=== PATIENT | male | born 1950 | race Caucasian/White ===

== ENCOUNTER 2018-07-06 16:09 | Emergency (ER) | payer OTHER ==
--- NOTE | 2018-07-06 16:24 | ER Report ---
History and Physical Time Seen By MD: 16:23 (JOSHUA MORGAN DO) HPI/ROS CHIEF COMPLAINT: Bilateral erythematous rash of the lower extremities HISTORY OF PRESENT ILLNESS: Patient is a 68-year-old male diabetic here with complaints of several weeks of lower extremity rash which has spread up the legs in spite of antimicrobial therapy with Bactrim, doxycycline and topical antifungal [id number] creams. Patient has been seen multiple times in the outpatient setting at urgent care but comes in today because the rash has been spreading in spite of antimicrobial therapy. Patient also complains of increased swelling, increased pain and pruritus. Patient is afebrile at time of evaluation. 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 Patient is hemodynamically stable at time of evaluation. He reports finishing the doxycycline within the last day with continued spread of the rash. Patient is on metformin for diabetes, lisinopril for hypertension. Patient denies chest pain, shortness breath, nausea , vomiting, abdominal pain, dysuria, hematuria, headache, blurred vision. REVIEW OF SYSTEMS: Constitutional: No fever, no chills. Eyes: No discharge. ENT: No sore throat. Cardiovascular: No chest pain, no palpitations. Respiratory: No cough, no shortness of breath. Gastrointestinal: No abdominal pain, no vomiting. Genitourinary: No hematuria. Musculoskeletal: No back pain. Skin: + Erythematous rashes of bilateral lower extremities below the knees with 2+ pitting edema and warmth to the touch.. Neurological: No headache. No focal neurological deficits (JOSHUA MORGAN DO) Allergies: Coded Allergies: cephalexin (Verified Allergy, Intermediate, 07/06/18) Home Meds Active Scripts Fluconazole (DIFLUCAN) 150 Mg Tablet, 150 MG PO DIRECTED, #2 TAB 0 Refills Take one tablet today, then repeat in 3 days. Prov:JUMA FRYE MD 07/06/18 Triamcinolone Acetonide 0.1% (TRIAMCINOLONE ACETONIDE 0.1%) 60 Ml Lotion, 60 ML TP TID, #1 BOT 0 Refills Prov:JUMA FRYE MD 07/06/18 Constitutional Vital Sign - Last 24 Hours 07/06/18 07/06/18 07/06/18 07/06/18 16:26 16:30 16:39 16:43 Temp 98.5 Pulse 76 77 Resp 20 B/P (MAP) 143/88 (106) 147/81 (103) 147/81 Pulse Ox 92 90 O2 Delivery Room Air 07/06/18 07/06/18 07/06/18 07/06/18 16:44 17:14 17:44 18:14 Pulse 77 75 76 75 Pulse Ox 90 93 94 92 07/06/18 07/06/18 07/06/18 07/06/18 18:19 18:39 18:54 19:00 Pulse 78 70 73 B/P (MAP) 142/72 (95) Pulse Ox 91 95 94 07/06/18 07/06/18 07/06/18 07/06/18 19:09 19:24 19:30 19:39 Pulse 67 71 73 B/P (MAP) 144/78 (100) Pulse Ox 94 94 93 07/06/18 07/06/18 07/06/18 19:54 20:00 20:12 Pulse 69 95 Resp 16 B/P (MAP) 148/74 (98) 138/85 (102) Pulse Ox 94 95 O2 Delivery Room Air Intake and Output 07/06/18 07/06/18 07/07/18 15:00 23:00 07:00 Intake Total 550 ml Balance 550 ml (JUMA FRYE MD) Physical Exam General Appearance: The patient is alert, has no immediate need for airway protection and no signs of toxicity. No acute distress Eyes: Pupils equal and round no pallor or injection. ENT, Mouth: Mucous membranes are moist. Respiratory: There are no retractions, lungs are clear to auscultation. Cardiovascular: Regular rate and rhythm. Gastrointestinal: Abdomen is soft and non tender, no masses, bowel sounds normal. Neurological: No focal neurological deficits Skin: + Bilateral erythematous rashes of the lower extremities below the knees with 2+ pitting edema, warmth to the touch Musculoskeletal: Neck is supple non tender. Extremities are nontender, + 2 + pitting edema and have full range of motion. DIFFERENTIAL DIAGNOSIS: After history and physical exam differential diagnosis was considered for cellulitis, diabetic leg infection, bacterial infection, fungal infection, viral exanthem (JOSHUA MORGAN DO) Medical Decision Making Data Points Result Diagram: 07/06/18 1705 07/06/18 170 Laboratory Hematology Test 07/06/18 17:05 07/06/18 18:48 Red Blood Count 4.61 M/uL (4.00-5.60) Mean Corpuscular Volume 100.3 fL (80.0-96.0) Mean Corpuscular Hemoglobin 35.6 pg (26.0-33.0) Mean Corpuscular Hemoglobin Concent 35.5 g/dL (32.0-36.0) Red Cell Distribution Width 14.0 % (11.5-14.5) Mean Platelet Volume 7.7 fL (7.2-11.1) Neutrophils (%) (Auto) 45.7 % (39.4-72.5) Lymphocytes (%) (Auto) 34.8 % (17.6-49.6) Monocytes (%) (Auto) 13.7 % (4.1-12.4) Eosinophils (%) (Auto) 4.5 % (0.4-6.7) Basophils (%) (Auto) 1.3 % (0.3-1.4) Nucleated RBC Relative Count (auto) 0.0 /100WBC Neutrophils # (Auto) 3.5 K/uL (2.0-7.4) Lymphocytes # (Auto) 2.7 K/uL (1.3-3.6) Monocytes # (Auto) 1.1 K/uL (0.3-1.0) Eosinophils # (Auto) 0.3 K/uL (0.0-0.5) Basophils # (Auto) 0.1 K/uL (0.0-0.1) Nucleated RBC Absolute Count (auto) 0.00 K/uL Erythrocyte Sedimentation Rate 11 mm/HOUR (0-20) Prothrombin Time 13.8 seconds (12.0-14.4) Prothromb Time International Ratio 1.06 Sodium Level 135 mmol/L (137-145) Potassium Level 4.4 mmol/L (3.5-5.0) Chloride Level 100 mmol/L (98-107) Carbon Dioxide Level 24 mmol/L (22-30) Blood Urea Nitrogen 24 mg/dl (9-21) Creatinine 1.00 mg/dl (0.66-1.25) Glomerular Filtration Rate Calc > 60.0 Random Glucose 90 mg/dl (75-110) Lactate 1.1 mmol/L (0.7-2.1) Calcium Level 9.0 mg/dl (8.4-10.2) Total Bilirubin 0.7 mg/dl (0.2-1.3) Aspartate Amino Transf (AST/SGOT) 21 U/L (0-35) Alanine Aminotransferase (ALT/SGPT) 18 U/L (0-56) Alkaline Phosphatase 60 U/L (0-126) B-Type Natriuretic Peptide 93 pg/ml (0-100) Total Protein 7.1 g/dl (6.3-8.2) Albumin 4.2 g/dl (3.5-5.0) Urine Random Creatinine 83.1 mg/dl Urine Random Total Protein 10 mg/dl (<11) Chemistry Test 07/06/18 17:05 07/06/18 18:48 White Blood Count 7.7 k/uL (4.5-11.0) Red Blood Count 4.61 M/uL (4.00-5.60) Hemoglobin 16.4 g/dL (14.0-18.0) Hematocrit 46.2 % (42.0-52.0) Mean Corpuscular Volume 100.3 fL (80.0-96.0) Mean Corpuscular Hemoglobin 35.6 pg (26.0-33.0) Mean Corpuscular Hemoglobin Concent 35.5 g/dL (32.0-36.0) Red Cell Distribution Width 14.0 % (11.5-14.5) Platelet Count 224 K/uL (150-450) Mean Platelet Volume 7.7 fL (7.2-11.1) Neutrophils (%) (Auto) 45.7 % (39.4-72.5) Lymphocytes (%) (Auto) 34.8 % (17.6-49.6) Monocytes (%) (Auto) 13.7 % (4.1-12.4) Eosinophils (%) (Auto) 4.5 % (0.4-6.7) Basophils (%) (Auto) 1.3 % (0.3-1.4) Nucleated RBC Relative Count (auto) 0.0 /100WBC Neutrophils # (Auto) 3.5 K/uL (2.0-7.4) Lymphocytes # (Auto) 2.7 K/uL (1.3-3.6) Monocytes # (Auto) 1.1 K/uL (0.3-1.0) Eosinophils # (Auto) 0.3 K/uL (0.0-0.5) Basophils # (Auto) 0.1 K/uL (0.0-0.1) Nucleated RBC Absolute Count (auto) 0.00 K/uL Erythrocyte Sedimentation Rate 11 mm/HOUR (0-20) Prothrombin Time 13.8 seconds (12.0-14.4) Prothromb Time International Ratio 1.06 Glomerular Filtration Rate Calc > 60.0 Lactate 1.1 mmol/L (0.7-2.1) Calcium Level 9.0 mg/dl (8.4-10.2) Total Bilirubin 0.7 mg/dl (0.2-1.3) Aspartate Amino Transf (AST/SGOT) 21 U/L (0-35) Alanine Aminotransferase (ALT/SGPT) 18 U/L (0-56) Alkaline Phosphatase 60 U/L (0-126) B-Type Natriuretic Peptide 93 pg/ml (0-100) Total Protein 7.1 g/dl (6.3-8.2) Albumin 4.2 g/dl (3.5-5.0) Urine Random Creatinine 83.1 mg/dl Urine Random Total Protein 10 mg/dl (<11) Coagulation Test 07/06/18 17:05 Prothrombin Time 13.8 seconds Prothromb Time International Ratio 1.06 Urinalysis Test 07/06/18 18:48 Urine Random Creatinine 83.1 mg/dl Urine Random Total Protein 10 mg/dl (<11) (JUMA FRYE MD) ED Course/Re-evaluation ED Course Patient is a 68-year-old male here with complaints of bilateral lower extremity erythematous, edematous rashes which is been spreading up the legs in spite of being on antimicrobial therapy with Bactrim and doxycycline and mupirocin topical and [id number] antifungals. Patient reports that the rash has been present and spreading for the past several weeks in spite of antimicrobial therapy. He was concerned that the rash has been spreading proximally towards his artificial knee. Blood work and blood cultures were collected. A bolus of 500 mL of fluid and a dose of Cleocin 600 mg IV. In the setting of diabetes and a failure of outpatient antimicrobial therapy, decision was made to pursue inpatient admission for IV antibiotic therapy. (JOSHUA MORGAN DO) ED Course Assumed care of this patient at shift change. Bilateral lower extremity swelling and rash. Dr. Lui, hospitalist, came to the ER to see the patient. See his note. [place] that this was not cellulitis. Further testing done with PT/INR, BNP, Urine cr and protein. Ultrasound was negative for DVT. Will try triamcinolon 0.1 lotion and add in Diflucan. Recommended follow-up with primary care and consider dermatology evaluation if not improving. Decision to Disposition Date: Jul 06, 2018 Decision to Disposition Time: 19:56 (JUMA FRYE MD) Depart Departure Latest Vital Signs Vital Signs Date Time Temp Pulse Resp B/P (MAP) Pulse Ox O2 Delivery O2 Flow Rate FiO2 07/06/18 20:12 95 16 138/85 (102) 95 Room Air 07/06/18 16:43 98.5 (JUMA FRYE MD) Impression: Primary Impression: Rash of unknown cause Condition: Improved Disposition: HOME OR SELF-CARE New Scripts Fluconazole (DIFLUCAN) 150 Mg Tablet 150 MG PO DIRECTED, #2 TAB 0 Refills Take one tablet today, then repeat in 3 days. Prov: JUMA FRYE MD 07/06/18 Triamcinolone Acetonide 0.1% (TRIAMCINOLONE ACETONIDE 0.1%) 60 Ml Lotion 60 ML TP TID, #1 BOT 0 Refills Prov: JUMA FRYE MD 07/06/18 Patient Instructions: Acute Rash (ED) Additional Instructions: We do not know the cause of rash and swelling at this time. Follow-up with primary care and consider seeing Dermatology for further evaluation. Trial of a topical steroid over the weekend. Trial of an oral antifungal medicine, Diflucan 150mg dose now and again in 3 days. JOSHUA MORGAN DO Jul 06, 2018 16:24 JUMA FRYE MD Jul 06, 2018 18:44
[2018-07-06] MEDS ORDERED: CLINDAMYCIN(*) 600 MG/NS 50 ML 50 ML IVPB ONE (16:50)
[2018-07-06] MEDS ORDERED: NS(*) 0.9% 500 ML BAG 500 ML IV ONE (16:50)
[2018-07-06 17:18] LABS: PLATELET COUNT, AUTOMATED 224 K/uL (150-450)
[2018-07-06 19:35] LABS: INR 1.06
--- NOTE | 2018-07-06 19:49 | Hospitalist Consultation ---
History of Present Illness Requesting Physician Umair Reason for Consult Bilateral LE swelling/erythema History of Present Illness 68yo male with a h/o T2DM, diabetic neuropathy and HTN who came to the ER for concern of worsening skin infection. About 6 weeks ago, he developed bilateral lateral calf redness, scabbing and oozing. He also developed redness at the base of his right thumb. He tried some OTC Lotrimin, but it didn't help. Then , he went to an urgent care and was started on Bactrim. The oozing stopped, but the redness continued. He was then put on Doxycycline, which didn't help. He was then given topical Muprocin to apply on the erythema, which hasn't helped. He never had any fever/chills/pain/itching/weakness. He felt fine. About 9 days ago, he developed bilateral ankle swelling. The erythema continued on the legs and thumb base. He denies orthopnea/PND/SOB/CP. The last couple of days he has had some itching of the red areas and the redness has spread up the left shannon. He denies any new medications (besides mentioned above), supplements or vitamins. In the ER, he was given a dose of Clindamycin IV. History Problems: (1) T2DM (type 2 diabetes mellitus) (2) HTN (hypertension) (3) Neuropathy in diabetes (4) Depression Home Meds Active Scripts Fluconazole (DIFLUCAN) 150 Mg Tablet, 150 MG PO DIRECTED, #2 TAB 0 Refills Take one tablet today, then repeat in 3 days. Prov:JUMA FRYE MD 07/06/18 Triamcinolone Acetonide 0.1% (TRIAMCINOLONE ACETONIDE 0.1%) 60 Ml Lotion, 60 ML TP TID, #1 BOT 0 Refills Prov:JUMA FRYE MD 07/06/18 Allergies: Coded Allergies: cephalexin (Verified Allergy, Intermediate, 07/06/18) Hx Alcohol Use: No Review of Systems All Systems Reviewed/Normal: Yes, Except as Noted Exam Vital Signs Vital Signs Date Time Temp Pulse Resp B/P (MAP) Pulse Ox O2 Delivery O2 Flow Rate FiO2 07/06/18 20:12 95 16 138/85 (102) 95 Room Air 07/06/18 16:43 98.5 General Appearance: Alert, Awake, No Acute Distress Neuro: No Gross deficits Eyes: PERRLA ENT: Moist Mucous Membranes Cardiovascular: Regular Rate and Rhythm, No JVD Respiratory: Clear to Auscultation GI: Abd Soft and Non-Tender Extremities: Edema (1-2+ pitting in ankles to mid shins) Integumentary: Other (Confluent, macular erythema over bilateral lateral and anterior shins to feet. Non-tender. Warm. Some scaly areas and some scabs.) Medical Decision Making Data Points Result Diagram: 07/06/18170407/06/18 170 TSH pending INR 1.06 Item Value Date Time Neutrophils (%) (Auto) 45.7 % 07/06/181704 Lymphocytes (%) (Auto) 34.8 % 07/06/181704 Monocytes (%) (Auto) 13.7 % H 07/06/181704 Eosinophils (%) (Auto) 4.5 % 07/06/181704 Erythrocyte Sedimentation Rate 11 mm/HOUR 07/06/181704 B-Type Natriuretic Peptide 93 pg/ml 07/06/18 170 Total Bilirubin 0.7 mg/dl 07/06/18 170 Aspartate Amino Transf (AST/SGOT) 21 U/L 07/06/18 170 Alanine Aminotransferase (ALT/SGPT) 18 U/L 07/06/18 170 Alkaline Phosphatase 60 U/L 07/06/18 170 Urine Random Creatinine 83.1 mg/dl 07/06/18 1848 Urine Random Total Protein 10 mg/dl 07/06/18 1848 EKG / Imaging Imaging Venogram bilateral - 1. No evidence of deep venous thrombosis of the bilateral lower extremities. Assessment and Plan Problems: (1) Erythema of lower extremity Status: Acute Assessment & Plan: He presented with 6 weeks of bilateral LE edema that didn't improve with topical Lotrimin, oral Bactrim, oral Doxycycline and topical Mupirocin. He had no f/c/weakness/pain. He has developed swelling in the last 9 days in the ankles and itching in the legs in the last day. WBC/ESR/ neutrophil percentage/Lactate are all normal. He doesn't have a cellulitis, but a dermatitis. I offered to admit him to work it up more quickly, but he would rather do it as an outpatient. He will go home with a trial of a mid- potency topical steroid for the erythema. If it doesn't improve or worsens, he needs to see a Active [employer] Administrator. (2) Edema Status: Acute Assessment & Plan: Symptoms started about 9 days ago. He has no orthopnea/ PND. Urine protein/creatinine ratio is wnl. BNP/LFT's/INR are wnl. TSH pending. Bilateral venogram negative. He reports drinking a 6 pack per night of beer and the MCV is elevated, so cannot rule out cirrhosis. He will follow up with the Urgent Care for the pending TSH and further workup. Copies to: JOSHUA MORGAN DO Venous Thromboembolism Antithrombotics Is Pt On Any Antithrombotics?: No Exam Sepsis Risk: No Definite Risk MARY RODRIGUEZ MD Jul 06, 2018 19:49
[2018-07-06] MEDS ORDERED: TRIA60LO3 TP (20:01)
[2018-07-06] MEDS ORDERED: FLUC150T40 PO (20:01)
[2018-07-06 20:12] VITALS: BP 138/85
--- NOTE | 2018-07-06 20:13 | RADIOLOGY IMAGING REPORT ---
FACILITY: [facility] [place] PATIENT NAME: Biju Fine : 1950 MR: [id number] V: [id number] EXAM DATE: ORDERING PHYSICIAN: JUMA FRYE TECHNOLOGIST: Location: [facility] Patient: Biju Fine : 1950 Visit/Account:[id number] Date of Sevice: 07/06/2018 Bilateral lower extremity duplex venous ultrasound Indication: Bilateral leg swelling and redness. Comparison: None Available Findings: Duplex Doppler and color flow imaging was performed. The bilateral common femoral, femoral , and popliteal veins are all patent and compressible with normal Doppler wave forms. There are norm al responses to augmentation. The bilateral posterior tibial and peroneal veins are clear. The proximal greater saphenous veins are also normal. Subcutaneous tissues do show edema in both lower legs. Impression: 1. No evidence of deep venous thrombosis of the bilateral lower extremities. Report Dictated By: Carmelo Chauhan at 07/06/2018 8:08 PM Report E-Signed By: Carmelo Chauhan at 07/06/2018 8:09 PM WSN:[id number]
== END 2018-07-06 20:14 | disposition home or self-care (01) ==
LOC: ER 16:12
DX: R21 Rash and other nonspecific skin eruption (principal); E11.9 Type 2 diabetes mellitus without complications; I10 Essential (primary) hypertension; Z79.84 Long term (current) use of oral hypoglycemic drugs; Z79.899 Other long term (current) drug therapy
CPT/HCPCS: 36415; 82570; 83605; 83880; 84156; 84443; 85025; 85610; 85651; 87040; 96365; 99283; J3490; J7040; 82040; 82247; 82310; 82374; 82435; 82565; 82947; 84075; 84132; 84155; 84295; 84450; 84460; 84520; 93970